=== PATIENT | female | born 1955 | race Caucasian/White ===

== ENCOUNTER 2016-04-19 06:07 | Inpatient (IN) | payer MEDICAID ==
[2016-04-19] MEDS ORDERED: IPRATROPIUM/ALBUTEROL 3 ML DEYVIAL IH ONE ×2 (06:13→06:56)
[2016-04-19] MEDS ORDERED: BENZONATATE 100 MG CAP PO ONE (06:14)
--- NOTE | 2016-04-19 06:33 | EDPHY ---
H & P Smoking Status: Current every day smoker Time Seen by Provider: 04/19/16 06:26 HPI/ROS: HPI Cough, congestion, shortness of breath. 60-year-old female by ambulance from home. Patient reports that she has had nasal congestion with clear rhinorrhea for the last 2 weeks. She then developed a dry, nonproductive cough about a week ago. The cough has been persistent and slightly worse through the beginning of this week. She reports like she was wheezing and short of breath secondary to the cough and congestion. EMS reports room air pulse oximetries of 86%. ROS: Constitutional: No fever, no chills. No weakness. Eyes: No discharge. No changes in vision. ENT: No sore throat. As above. Respiratory: As above. Cardiac: No chest pain, no palpitations. Gastrointestinal: No abdominal pain, no vomiting, no diarrhea. Genitourinary: No hematuria. No dysuria or increased frequency with urination. Musculoskeletal: No back pain. No neck pain. No myalgias or arthralgias. Skin: No rashes. Neurological: No headache. No focal weakness or altered sensation. Past medical history: Epilepsy, cholecystectomy, tubal ligation, hypertension. She takes metoprolol and Diovan. Social history: Nonsmoker. Here by herself. Physical Exam: General Appearance: Alert, no distress. This patient is responding to questions appropriately and in full sentences. This patient appears well- hydrated and well-nourished. Eyes: Pupils equal and round no pallor or injection. No lid edema, erythema or injection. Respiratory: There are no retractions, lung sounds are diminished throughout with intermittent rhonchi, wheezing on exhalation and decreased lung sounds at the right base. No tachypnea at rest. Cardiovascular: Regular rate and rhythm. No murmur. Neurological: Motor sensory function is grossly intact. Cranial nerves are normal. Gait is normal. Skin: Warm and dry, no rashes. Musculoskeletal: Neck is supple and nontender. Extremities are symmetrical. All joints range without pain or impingement. Psychiatric: No agitation. No depression. Database: Influenza-negative. EKG: Imaging: Chest x-ray PA and lateral; the cardiac mediastinal silhouette is unremarkable. No evidence of infiltrate or pneumothorax. Diffuse airway disease. No other acute cardiopulmonary disease process noted. Interpreted by me. Procedures: Emergency department course: Patient placed on a store worker. IV was placed per EMS. She was started on an albuterol/Atrovent nebulizer. She was given 200 mg of Tessalon Perles. Influenza swab and chest x-ray obtained. 6:50 a.m., patient re-evaluated. She is still quite diminished with scant wheezing and rhonchi in the upper and mid lung fournier. Patient started on 6 mL albuterol/Atrovent nebulizers. She was given 125 mg of Solu-Medrol. Care turned over to Dr. Freeman at 7:00 a.m.. Patient to be reassessed and dispositioned. Differential Diagnosis: The differential diagnosis on this patient includes but is not limited to bronchitis, viral upper respiratory infection, reactive airway disease, influenza. Serious bacterial infection unlikely. This represents a partial list of diagnoses considered. These considerations are based on history, physical exam, past history, reassessment and diagnostic testing. (Anca Ayala) Constitutional: Initial Vital Signs O2 Sat (%) 94 04/19/16 06:10 O2 Delivery Mode Room Air O2 (L/minute) 2 Allergies/Adverse Reactions: erythromycin base Allergy (Verified 04/19/16 06:17) BERRIES Allergy (Unknown, Uncoded 01/05/12 07:37) Rash Home Medications: Medication Instructions Recorded Albuterol [Ventolin Hfa Inhaler] 2 puffs IH QID PRN #1 mdi 06/05/15 Valsartan [Diovan] 320 mg PO DAILY 06/05/15 amLODIPine BESYLATE [Norvasc 10 mg 10 mg PO DAILY 06/05/15 (*)] Diazepam [Valium 5 MG (*)] 5 mg PO QID 04/19/16 Metoprolol Succinate Xr [Toprol Xl 100 mg PO TID 04/19/16 100 mg (*)] Rosuvastatin Calcium [Crestor 10mg 10 mg PO DAILY 04/19/16 (RX)] carBAMazepine ER [TEGretol XR (RX)] 100 mg PO BID 04/19/16 carBAMazepine ER [TEGretol XR] 400 mg PO BID 04/19/16 Medical Decision Making ED Course/Re-evaluation: 700: The patient is signed out to me at change of shift by Dr. Anca Ayala. I went in personally evaluated the patient. I reviewed the documentation by Dr. Ayala. Patient states she has been sick for approximately 2 weeks. She has had worsening cough and shortness of breath over the past 6 days. She feels as though the 1st nebulizer treatment did help her slightly. Patient denies any history of asthma, COPD or other lung disease. She states she stopped smoking 10 days ago and is on a patch. GENERAL: No acute distress, alert. Taking nebulizer. HEENT: Eyes normal to inspection, no signs of dehydration. RESPIRATORY: Poor breath sounds throughout. No rales, rhonchi or wheezing. Mild accessary muscle use. CVS: Regular rate and rhythm, no rubs, murmurs, or gallops. ABDOMEN: Soft, nontender. SKIN: Normal color, no rash, warm, dry. No pallor. EXTREMITIES: No pedal edema, no calf tenderness. NEURO/PSYCH: Alert and oriented, normal mood and affect. I rechecked the patient while here. She states she felt mildly improved. She was taken off the oxygen to check her saturation. Dropped to 85%. She is placed back on oxygen to 92%. The patient was also noted to have a sodium 127. This was compared with her previous values. She has had hyponatremia in the past. Reviewed the chest x-ray with Dr. Sarthak Asencio. He did not feel there was a focal infiltrate. 845: I discussed case with the hospitalist service. Patient will be admitted to the [facility] to Dr. Ramos. They recommended the patient receive a dose of antibiotics. She is allergic to erythromycin. She will be given Levaquin orally. I discussed the plan with the patient. I answered all her questions. ( Jennifer Freeman) Differential Diagnosis: Patient presents emergency department with ongoing cough and cold symptoms. She has no focal infiltrate on her x-ray. Her chest x-ray appears consistent with bronchitis. Patient did have a drop in oxygen saturation requires oxygen. She will be admitted for further observation. (Jennifer Freeman) - Data Points Laboratory Results: Laboratory Results 04/19/16 07:15 04/19/16 07:15 Medications Given: Discontinued Medications Albuterol/Ipratropium (Duoneb) 3 ml IH EDNOW ONE Stop: 04/19/16 06:14 Last Admin: 04/19/16 06:28 Dose: 3 ml Albuterol/Ipratropium (Duoneb) 6 ml IH EDNOW ONE Stop: 04/19/16 06:57 Last Admin: 04/19/16 07:09 Dose: 6 ml Albuterol/Ipratropium (Duoneb) 3 ml IH Q6HRS HOMERO Stop: 10/16/16 11:59 Last Admin: 04/19/16 11:24 Dose: 3 ml Benzonatate (Tessalon Pearles) 200 mg PO EDNOW ONE Stop: 04/19/16 06:15 Last Admin: 04/19/16 06:28 Dose: 200 mg Levofloxacin (Levaquin) 750 mg PO EDNOW ONE PRN Reason: Protocol Stop: 04/19/16 08:48 Last Admin: 04/19/16 08:57 Dose: 750 mg Methylprednisolone Sodium Succinate (Solu-Medrol) 125 mg IVP EDNOW ONE Stop: 04/19/16 06:57 Last Admin: 04/19/16 07:09 Dose: 125 mg Departure - Departure Disposition: [facility] Acute Clinical Impression: Bronchitis, Hyponatremia Condition: Good
[2016-04-19] MEDS ORDERED: methylPREDNISolone SOD SUCC 125 MG/2 ML VIAL IVP ONE (06:56)
[2016-04-19 07:46] LABS: ANION GAP 11 mEq/L (8-16); CALCIUM 8.9 mg/dL (8.5-10.4); CARBON DIOXIDE 26 mEq/l (22-31); CHLORIDE 90 mEq/L (97-110); CREATININE 0.5 mg/dL (0.6-1.0); GLOMERULAR FILTRATION RATE > 60; GLUCOSE 114 mg/dL (70-100); POTASSIUM 4.7 mEq/L (3.5-5.2); SODIUM 127 mEq/L (134-144)
[2016-04-19 07:47] LABS: % IMMATURE GRANULYOCYTES 0.2 % (0.0-1.1); ABSOLUTE IMMATURE GRANULOCYTES 0.01 10^3/uL (0.00-0.10); ADD DIFF? NO; ADD MORPH? NO; ADD SCAN? YES; FRAGMENT RBC FLAG 0 (0-99); HEMATOCRIT 46.9 % (38.0-47.0); HEMOGLOBIN 17.2 g/dL (12.6-16.3); LEFT SHIFT FLG 0 (0-99); LIPEMIA HEMOLYSIS FLAG 90 (0-99); MEAN CELL HEMOGLOBIN 33.7 pg (27.9-34.1); MEAN CELL HEMOGLOBIN CONCENTR. 36.7 g/dL (32.4-36.7); MEAN PLATELET VOLUME 9.6 fL (8.7-11.7); PLATELET CLUMPS FLAG 30 (0-99); PLATELET COUNT 206 10^3/uL (150-400)
[2016-04-19 07:48] LABS: ATYPICAL LYMPHOCYTE FLAG 270 (0-99)
--- NOTE | 2016-04-19 08:14 | DX ---
PA and lateral chest x-ray 0617 hours. History: Dyspnea. Findings: Heart size and pulmonary vasculature are within normal limits. There is moderate arterioscl erotic calcification at the aortic arch level. The lungs are mildly hyperexpanded. There is no consol idation, effusion, or pneumothorax. Osseous structures appear to be intact. Impression: 1. No active cardiopulmonary disease seen.
[2016-04-19 08:35] LABS: SCAN NEGATIVE
[2016-04-19] MEDS ORDERED: ALBUTEROL 3 ML DEYVIAL IH PRN (09:01)
--- NOTE | 2016-04-19 10:49 | GHP ---
[f rep st] HISTORY AND PHYSICAL DATE OF ADMISSION: 04/19/2016 CHIEF COMPLAINT: Shortness of breath. HISTORY OF PRESENT ILLNESS: A 60-year-old female with history of epilepsy and hypertension, who pres ents with complaints of worsening cough and shortness of breath over the preceding 4 days. The patie nt reports an upper respiratory infection that preceded this presentation by about 2 weeks, including rhinorrhea, runny postnasal drip, and sore throat and associated cough. The patient reports that sh e essentially had recovered from this with a remnant dry cough and then approximately 72 hours prior to presentation had acute worsening of her cough. It felt more productive. She had new subjective f sandra and chills, myalgias, and shortness of breath; therefore, she presented to the emergency depart ment. The patient endorses some post-tussive emesis that she describes as nonbloody. Denies diarrhe a. Denies dysuria, hematuria, lower extremity edema. Denies any new rashes or headache or vision ch anges. PAST MEDICAL HISTORY: Hypertension. SOCIAL HISTORY: Positive for half a pack per day smoker. No alcohol or illicit drugs. ADVANCED DIRECTIVES: Patient is full cor, full tube. Janet would be her medical decision maker. REVIEW OF SYSTEMS: A 10-point review of systems is negative with the exception of that reported in t he HPI. PHYSICAL EXAMINATION: VITAL SIGNS: Blood pressure 131/87, heart rate 86, respiratory rate 18, 96% o n 2 L, 36.5. GENERAL: This is a pleasant-appearing, middle-aged female, in no acute distress. HEEN T: Notable for moist mucous membranes. Eye exam is negative for any icterus. CARDIAC: Patient is regular rate and rhythm. PULMONARY: Patient has diminished breath sounds throughout with scattered wheezing. GASTROINTESTINAL: Positive bowel sounds. ABDOMEN: Soft and nontender in all 4 quadrants . MUSCULOSKELETAL: Negative for any lower extremity edema. SKIN: Negative for any rashes. NEUROL OGIC: She is alert and oriented x3. PSYCHIATRIC: She is pleasant and cooperative on interview and examination. DATA: White count is 4.2, hematocrit 46.9, platelets 206. Sodium 127, creatinine 0.5. Influenza ne gative. Chest x-ray, which I personally reviewed and interpreted, shows no acute infiltrates. Radio logy does comment on query of bronchitis and hyperexpansion. ASSESSMENT AND PLAN: This is a 60-year-old female presenting with cough and shortness of breath. 1. Acute hypoxic respiratory failure. The patient's oxygen saturations are dropping into the high 8 0s on room air. The patient has cough, is wheezing on examination. Chest x-ray is negative for loba r infiltrate. I suspect based on her time course that she likely has a preceding viral illness with a secondary conversion, likely an atypical pneumonia. We will treat with oral antibiotics and inhale d breathing treatments, as well as oral steroids. 2. Acute atypical pneumonia. Based on the chronology described above and symptoms, I think this is appropriate to continue treatment as outlined above. 3. Hypertension. We will continue her home medications when reconciled. 4. Epilepsy. Patient has not had a seizure in several weeks, has been on stable epileptic medicatio ns. We will continue these without change. 5. Prophylaxis: Patient can ambulate. 6. Diet: Regular. DISPOSITION: I expect less than 2 midnights if the patient responds well to outlined treatment above and is weaned off oxygen successfully. I discussed the case with the [facility] RN. We will triage the p atient to our observation unit for care and monitoring. /[id number]/MODL
[2016-04-19] MEDS: DIAZEPAM 5 MG TAB PO SCH ×3 (11:36→21:05)
[2016-04-19] MEDS ORDERED: IPRATROPIUM/ALBUTEROL 3 ML DEYVIAL IH SCH (12:00)
[2016-04-19] MEDS: LEVALBUTEROL 0.63 MG/3 ML DEYVIAL IH SCH ×3 (15:42→22:55)
[2016-04-19] MEDS: methylPREDNISolone SOD SUCC 125 MG/2 ML VIAL IVP SCH (18:17)
[2016-04-19] MEDS: guaiFENesin 600 MG TAB.ER PO SCH (21:05)
[2016-04-19] MEDS: carBAMazepine ER 400 MG TAB PO SCH (21:06)
[2016-04-20] MEDS: methylPREDNISolone SOD SUCC 125 MG/2 ML VIAL IVP SCH ×4 (01:16→20:08)
[2016-04-20] MEDS ORDERED: NON-FORMULARY NEW DRUG (Valsartan [Diovan] 320 MG) PO SCH (09:00)
[2016-04-20] MEDS: LEVALBUTEROL 0.63 MG/3 ML DEYVIAL IH SCH ×4 (09:10→22:22)
[2016-04-20] MEDS: DIAZEPAM 5 MG TAB PO SCH ×4 (10:24→20:36)
[2016-04-20] MEDS: guaiFENesin 600 MG TAB.ER PO SCH ×2 (10:26→20:36)
[2016-04-20] MEDS: carBAMazepine ER 400 MG TAB PO SCH ×2 (10:26→20:35)
[2016-04-20] MEDS: VALSARTAN 160 MG TAB PO SCH (10:29)
[2016-04-20] MEDS: ROSUVASTATIN CALCIUM 10 MG TAB PO SCH (10:55)
[2016-04-20] MEDS: NICOTINE 14 MG/24 HR PATCH TD SCH (10:55)
[2016-04-20] MEDS: METOPROLOL SUCCINATE XR 50 MG TAB PO SCH (10:56)
--- NOTE | 2016-04-20 16:48 | HOSPPROG ---
Hospitalist Progress Note Assessment/Plan: # Acute hypoxic respiratory failure 2/2 presumed atypical pna and RAD - remains very wheezy - peak flow in 100's oxygen saturation in low 80's on RA - cont abx - IV steroids - inhaled beta agonist # presumed atypical PNA - CXR (personally reviewed and interpreted) no lobular infiltrates- wbc 4 on admit - cont levofloxacin # RAD exacerbation - pt very wheezy on exam and peak flows low - cont steroids and nebs # proph - ambulating # diet - regular #Dispo - needs additional monitoring and IV steroids and respiratory care will change to inpt I have discussed with RT - pt remains very tight in between treatments with significant desaturation with exertion Subjective: still very dyspneic Objective: Vital Signs Temp Pulse Resp BP Pulse Ox 36.6 C 112 H 14 125/81 H 90 L 04/20/16 16:34 04/20/16 16:34 04/20/16 16:34 04/20/16 16:34 04/20/16 16:34 - Physical Exam Constitutional: no apparent distress Eyes: anicteric sclera Ears, Nose, Mouth, Throat: moist mucous membranes Cardiovascular: regular rate and rhythym Respiratory: reduced air movement, expiratory wheeze Gastrointestinal: normoactive bowel sounds, soft, non-tender abdomen Genitourinary: no bladder fullness Skin: warm Musculoskeletal: No asymmetric calves Neurologic: AAOx3 Psychiatric: interacting appropriately Lymph, Heme, Immunologic: no cervical LAD ICD10 Worksheet Patient Problems: Problems Problem Status Onset Bronchitis Acute Hyponatremia Acute
[2016-04-21] MEDS: methylPREDNISolone SOD SUCC 125 MG/2 ML VIAL IVP SCH ×5 (00:06→23:15)
[2016-04-21] MEDS: LEVALBUTEROL 0.63 MG/3 ML DEYVIAL IH SCH ×4 (05:51→22:50)
[2016-04-21] MEDS: DIAZEPAM 5 MG TAB PO SCH ×4 (06:03→23:15)
[2016-04-21] MEDS: VALSARTAN 160 MG TAB PO SCH (10:03)
[2016-04-21] MEDS: carBAMazepine ER 400 MG TAB PO SCH ×2 (10:03→21:51)
[2016-04-21] MEDS: guaiFENesin 600 MG TAB.ER PO SCH ×2 (10:04→23:17)
[2016-04-21] MEDS: ROSUVASTATIN CALCIUM 10 MG TAB PO SCH (10:04)
[2016-04-21] MEDS: NICOTINE 14 MG/24 HR PATCH TD SCH (10:05)
[2016-04-21] MEDS: METOPROLOL SUCCINATE XR 50 MG TAB PO SCH ×2 (10:14→10:37)
--- NOTE | 2016-04-21 15:34 | HOSPPROG ---
Hospitalist Progress Note Assessment/Plan: # Acute hypoxic respiratory failure 2/2 presumed atypical pna and RAD - Wheezing persistent but improved today - peak flow remain in 100's oxygen saturation 92% on 4 L - cont abx - IV steroids - inhaled beta agonist - consider CT chest to rule out PE if peak flows improve and remains hypoxic # Presumed atypical PNA - CXR (personally reviewed and interpreted) no lobular infiltrates- wbc 4 on admit - cont levofloxacin # RAD exacerbation - pt intermittently wheezy on exam and peak flows low - cont steroids and nebs # HTN - BP well controlled here - cont home norvasc and valsartan - reduced home dosing of metoprolol XL from 100 mg three times daily to 50 once a day # proph - will start Lovenox # diet - regular # Dispo - needs additional monitoring and IV steroids and respiratory care will change to inpt I have discussed with RN- patient remains hypoxic and very tight will continue current care under inpatient status Subjective: remains dyspneic Objective: Vital Signs Temp Pulse Resp BP Pulse Ox 36.4 C 87 16 113/77 92 04/21/16 08:00 04/21/16 12:37 04/21/16 12:37 04/21/16 12:37 04/21/16 12:37 - Physical Exam Constitutional: appears nourished Eyes: anicteric sclera Ears, Nose, Mouth, Throat: moist mucous membranes Cardiovascular: regular rate and rhythym Respiratory: reduced air movement, expiratory wheeze Gastrointestinal: normoactive bowel sounds, soft, non-tender abdomen Genitourinary: no bladder fullness Skin: warm, normal color Musculoskeletal: No asymmetric calves Neurologic: AAOx3 Psychiatric: interacting appropriately, not anxious Lymph, Heme, Immunologic: no cervical LAD ICD10 Worksheet Patient Problems: Problems Problem Status Onset Bronchitis Acute Hyponatremia Acute
[2016-04-21] MEDS: ENOXAPARIN 40 MG/0.4 ML SYR SC SCH (17:02)
[2016-04-22] MEDS: LEVALBUTEROL 0.63 MG/3 ML DEYVIAL IH SCH ×4 (05:34→22:59)
[2016-04-22] MEDS: methylPREDNISolone SOD SUCC 125 MG/2 ML VIAL IVP SCH (05:47)
[2016-04-22] MEDS: DIAZEPAM 5 MG TAB PO SCH ×4 (05:47→22:45)
[2016-04-22] MEDS: carBAMazepine ER 400 MG TAB PO SCH ×2 (09:28→22:46)
--- NOTE | 2016-04-22 09:29 | HOSPPROG ---
Hospitalist Progress Note Assessment/Plan: #Acute hypoxic respiratory failure: due to RAD exacerbation -still very poor airway movement #RAD exacerbation: due to virus vs atypical PNA. Flu negative. Change to oral pred in morning. Cont LQ #Benign HTN: cont home meds #DVT ppx: now walking. DC Lovenox #Diet: regular #Disp: if clinically improved, may DC tomorrow. Subjective: coughing up more pleghm today Objective: Vital Signs Temp Pulse Resp BP Pulse Ox 36.7 C 85 20 120/88 H 85 L 04/22/16 08:25 04/22/16 08:25 04/22/16 08:56 04/22/16 08:25 04/22/16 08:56 04/21/16 04/22/16 04/23/16 05:59 05:59 05:59 Intake Total 1000 Balance 1000 - Physical Exam Constitutional: no apparent distress Eyes: PERRL Ears, Nose, Mouth, Throat: moist mucous membranes Cardiovascular: regular rate and rhythym Respiratory: no respiratory distress, reduced air movement (Decreased air movement L>R, exp wheezing) Gastrointestinal: normoactive bowel sounds Genitourinary: no bladder fullness Skin: warm Musculoskeletal: full muscle strength Neurologic: AAOx3 ICD10 Worksheet Patient Problems: Problems Problem Status Onset Bronchitis Acute Hyponatremia Acute
[2016-04-22] MEDS: guaiFENesin 600 MG TAB.ER PO SCH ×2 (09:30→22:45)
[2016-04-22] MEDS: METOPROLOL SUCCINATE XR 50 MG TAB PO SCH (09:31)
[2016-04-22] MEDS: NICOTINE 14 MG/24 HR PATCH TD SCH (09:31)
[2016-04-22] MEDS: VALSARTAN 160 MG TAB PO SCH (09:32)
[2016-04-22] MEDS: ROSUVASTATIN CALCIUM 10 MG TAB PO SCH (09:41)
[2016-04-22] MEDS: ENOXAPARIN 40 MG/0.4 ML SYR SC SCH (19:29)
[2016-04-23] MEDS: LEVALBUTEROL 0.63 MG/3 ML DEYVIAL IH SCH ×2 (05:50→11:45)
[2016-04-23] MEDS: DIAZEPAM 5 MG TAB PO SCH (06:56)
[2016-04-23 07:36] LABS: ANION GAP 7 mEq/L (8-16); CALCIUM 8.5 mg/dL (8.5-10.4); CARBON DIOXIDE 30 mEq/l (22-31); CHLORIDE 93 mEq/L (97-110); CREATININE 0.6 mg/dL (0.6-1.0); GLOMERULAR FILTRATION RATE > 60; GLUCOSE 84 mg/dL (70-100); SODIUM 130 mEq/L (134-144)
[2016-04-23] MEDS: NICOTINE 14 MG/24 HR PATCH TD SCH (08:32)
[2016-04-23] MEDS: guaiFENesin 600 MG TAB.ER PO SCH (08:32)
[2016-04-23] MEDS: VALSARTAN 160 MG TAB PO SCH (08:32)
[2016-04-23] MEDS: ROSUVASTATIN CALCIUM 10 MG TAB PO SCH (08:33)
[2016-04-23] MEDS: carBAMazepine ER 400 MG TAB PO SCH (08:33)
[2016-04-23] MEDS: METOPROLOL SUCCINATE XR 50 MG TAB PO SCH (08:33)
[2016-04-23] MEDS ORDERED: predniSONE 20 MG TAB PO SCH (09:00)
[2016-04-23 11:53] VITALS: PULSE 80
[2016-04-23 14:02] VITALS: BP 110/80; RESP 17; TEMP 97.2; O2SAT 92
--- NOTE | 2016-04-23 17:02 | GDS ---
[f rep st] DISCHARGE SUMMARY DISCHARGE DIAGNOSES: 1. Acute hypoxic respiratory failure. 2. Reactive airway disease exacerbation. 3. Benign hypertension. 4. Epilepsy 5. Weakness HISTORY OF PRESENT ILLNESS: The patient is a pleasant, 60-year-old female with history of asthma, epilepsy and hypertension, who complained of worsening cough , shortness of breath over the preceding 4 days. She reports having an upper respiratory infection that proceeded the presentation by 2 weeks, including rhinorrhea, postnasal drip, and sore throat. She also had associated dry cough. She had recovered from this, and then approximately 72 hours prior to admission , the cough got worse and was more productive. She complained of new subjective fevers and chills, myalgias, and shortness of breath. At time of admission, patient's oxygen levels were in the 80s. HOSPITAL COURSE BY PROBLEM: 1. Acute hypoxic respiratory failure secondary to reactive airway disease exacerbation in the setting of viral versus atypical pneumonia: Patient was admitted and started on Levaquin, DuoNebs and prednisone. Her symptoms are much improved at this time. She will be discharged on 1 L of oxygen. She will complete a total of 5 days of antibiotics and prednisone. She was provided nebulizer at discharge. Flu was negative. 2. Benign hypertension: Continue home medications, except her Toprol was changed to 50 mg a day. 3. Epilepsy: Continue home medications. 4. Weakness: The patient was cleared by PT. DISPOSITION: Patient is stable for discharge. MEDICATIONS: Xopenex nebulizer, Levaquin and prednisone. FOLLOWUP: With her primary care doctor. /[id number]/MODL MTDD
== END 2016-04-23 14:17 | disposition home or self-care (01) | DRG 189 ==
LOC: EDUNIT# → F1N 09:14 → OBSVTOIN 04-20 16:43
PROVIDERS: ADMIT Hospitalist; ATTEND Hospitalist
DX: J96.01 Acute respiratory failure with hypoxia (principal); J45.901 Unspecified asthma with (acute) exacerbation; J18.9 Pneumonia, unspecified organism; I10 Essential (primary) hypertension; G40.909 Epilepsy, unspecified, not intractable, without status epilepticus; F17.210 Nicotine dependence, cigarettes, uncomplicated
CPT/HCPCS: 96374; 97161-GP; J1650

== ENCOUNTER → 2016-08-09 | Outpatient (CLI) | payer MEDICAID | LOC: FIMAGING 13:06 | PROVIDERS: ATTEND Family Medicine | DX: Z12.31 Encounter for screening mammogram for malignant neoplasm of breast (principal) | CPT/HCPCS: G0202 ==

== ENCOUNTER 2016-10-07 12:49 | Emergency (ER) | payer MEDICAID ==
[2016-10-07] MEDS ORDERED: ACETAMINOPHEN 500 MG TAB PO ONE (13:36)
--- NOTE | 2016-10-07 14:04 | EDPHY ---
H & P Stated Complaint: [facility] fall 2 wks ago injured low back and hips Time Seen by Provider: 10/07/16 14:04 - Personal History Current Tetanus/Diphtheria Vaccine: Yes - Medical/Surgical History Hx Asthma: No Hx Chronic Respiratory Disease: No Hx Diabetes: No Hx Cardiac Disease: No Hx Renal Disease: No Hx Cirrhosis: No Hx Alcoholism: No Hx HIV/AIDS: No Hx Splenectomy or Spleen Trauma: No Other PMH: pmh- HTN/EPILEPSY, [place] allergy to mold. psh- david, tubal ligation, appendectomy, breastbiobsy - Social History Smoking Status: Former smoker Constitutional: Initial Vital Signs Temperature (C) 36.6 C 10/07/16 12:54 Heart Rate 88 10/07/16 12:54 Respiratory Rate 17 10/07/16 12:54 Blood Pressure 175/92 H 10/07/16 12:54 O2 Sat (%) 94 10/07/16 12:54 O2 Delivery Mode Room Air Allergies/Adverse Reactions: erythromycin base Allergy (Verified 10/07/16 12:52) BERRIES Allergy (Unknown, Uncoded 01/05/12 07:37) Rash Home Medications: Medication Instructions Recorded Albuterol [Ventolin Hfa Inhaler] 2 puffs IH QID PRN #1 mdi 06/05/15 Valsartan [Diovan] 320 mg PO DAILY 06/05/15 amLODIPine BESYLATE [Norvasc 10 mg 10 mg PO DAILY 06/05/15 (*)] Diazepam [Valium 5 MG (*)] 5 mg PO QID 04/19/16 Rosuvastatin Calcium [Crestor] 10 mg PO DAILY 04/19/16 carBAMazepine ER [TEGretol XR] 400 mg PO BID 04/19/16 carBAMazepine ER [Tegretol Xr] 100 mg PO BID 04/19/16 Levalbuterol 0.63 mg [Xopenex 0.63 mg IH Q6HRS #0 deyvial 04/23/16 0.63MG Neb (*)] Metoprolol Succinate Xr [Toprol Xl 50 mg PO DAILY #30 tab 04/23/16 50 mg (*)] Hydrocodone/APAP 5/325 [[place] 1 - 2 each PO Q4-6PRN PRN #20 tab 10/07/16 5/325] Medical Decision Making ED Course/Re-evaluation: CHIEF COMPLAINT: Hip pain, back pain. HISTORY OF PRESENT ILLNESS: The patient is a 61-year-old female who presents with bilateral hip pain and back pain. She fell a week ago and has steadily increasing pain since then. The pain is worsened with standing up and walking. She has been treating the pain with Tylenol. REVIEW OF SYSTEMS: A 10 point review of systems was performed and is negative with the exception of the elements mentioned in the history of present illness. PHYSICAL EXAM: HR, BP, O2 Sat, RR. Temp noted General Appearance: Alert, well hydrated, appropriate, and non-toxic appearing. Head: Atraumatic without scalp tenderness or obvious injury Eyes: Pupils equal, round, reactive to light and accommodation, EOMI, no trauma , no injection. Ears: Clear bilaterally, no perforation, normal landmarks Nose: Atraumatic, no rhinorrhea, clear. Throat: There is no erythema or exudates, no lesions, normal tonsils, mucus membranes moist. Neck: Supple, 2+ carotid upstroke, nontender, no lymphadenopathy. Respiratory: No retractions, no distress, no wheezes, and no accessory muscle use. Lungs are clear to auscultation bilaterally. Cardiovascular: Regular rate and rhythm, no murmurs, rubs, or gallops. Bilateral carotid, radial, dorsalis pedis, and posterior tibial pulses intact. Good capillary refill all extremities. Gastrointestinal: Abdomen is soft, nontender, non-distended, no masses, no rebound, no guarding, no peritoneal signs. Musculoskeletal: Normal active ROM of all extremities, atraumatic. Neurological: Alert, appropriate, and interactive. The patient has normal DTRs and non-focal cranial nerves, motor, sensory, and cerebellar exam. Skin: No rashes, good turgor, no nodules on palpation. Past medical history: Hypertension, epilepsy. Past surgical history: Cholecystectomy, tubal ligation, appendectomy, breast biopsy. Family history: N/A. Social history: Agoraphobic. DIAGNOSTICS/PROCEDURES/CRITICAL CARE TIME: Study: CT of the lumbar spine/pelvis. Indication: Fall, pain. Results: 10% compression fracture of L4. The study was read by the radiologist. I viewed the images myself on the PACS system. DIFFERENTIAL DIAGNOSIS: The differential diagnosis includes, but is not limited to: vertebral fracture, contusion, sprain, strain, pelvic fracture. MEDICAL DECISION MAKIN-year-old female presents with bilateral lower back and hip pain secondary to a mechanical fall a week ago. She has been having difficulty walking and moving since then. She has been treating with Tylenol. I have ordered non-contrast CTs of the pelvis and lumbar spine. 1445: CT results conveyed to me by Dr. Amezuqita, radiology, as 10% compression fracture of L4. I have provided her a small course of [place] for pain control. I discussed the imaging results with her at this time and answered her questions. She is comfortable with the plan. - Data Points Medications Given: Discontinued Medications Acetaminophen (Tylenol) 1,000 mg PO EDNOW ONE Stop: 10/07/16 13:37 Last Admin: 10/07/16 13:57 Dose: 1,000 mg Departure - Departure Disposition: Home, Routine, Self-Care Clinical Impression: Lumbar compression fracture Qualifiers: Encounter type: initial encounter Fracture type: closed Qualified Code(s): S32.000A - Wedge compression fracture of unspecified lumbar vertebra, initial encounter for closed fracture Condition: Good Instructions: Vertebral Compression Fracture (ED) Additional Instructions: Take [place] as prescribed when needed for pain. Call Dr. Kaplan, neurosurgery, to set up a follow up appointment. Return for any serious worsening of condition. Referrals: Pablo Kaplan MD [Medical Doctor] - As per Instructions Prescriptions: Hydrocodone/APAP 5/325 [[place] 5/325] 1 - 2 each PO Q4-6PRN PRN #20 tab PRN Reason: Pain, Moderate Report Scribed for: Matt Spring Report Scribed by: Eduardo Menendez Date of Report: 10/07/16 Time of Report: 14:47
[2016-10-07] MEDS ORDERED: HYDROCOD/APAP 5/325 PREPACK#6 BTL TAKEHOME ONE (14:48)
[2016-10-07 15:26] VITALS: BP 154/96; PULSE 79; RESP 18; TEMP 98.2; O2SAT 96
== END 2016-10-07 15:10 | disposition home or self-care (01) ==
DX: S32.040A Wedge compression fracture of fourth lumbar vertebra, initial encounter for closed fracture (principal); I10 Essential (primary) hypertension; Z87.891 Personal history of nicotine dependence; W18.39XA Other fall on same level, initial encounter

== ENCOUNTER → 2017-05-23 | Outpatient (CLI) | payer MEDICAID | LOC: FIMAGING 13:02 | PROVIDERS: ATTEND Family Medicine | DX: Z13.820 Encounter for screening for osteoporosis (principal); M85.89 Other specified disorders of bone density and structure, multiple sites ==

== ENCOUNTER → 2017-08-17 | Outpatient (CLI) | payer MEDICAID | LOC: FIMAGING 11:30 | PROVIDERS: ATTEND Family Medicine | DX: Z12.31 Encounter for screening mammogram for malignant neoplasm of breast (principal) ==

== ENCOUNTER → 2018-03-21 | Outpatient (CLI) | payer MEDICAID | LOC: FIMAGING 14:23 | PROVIDERS: ATTEND Family Medicine | DX: M25.341 Other instability, right hand (principal) ==